=== PATIENT | female | born 1970 | race Caucasian/White ===

== ENCOUNTER 2023-07-16 09:44 | Outpatient (CLI) | payer BC | END 2023-07-16 09:45 | disposition home or self-care (01) | LOC: CSHMAMMO 09:44 | PROVIDERS: ATTEND Family Medicine | DX: Z13.820 Encounter for screening for osteoporosis (principal); S72.491E Other fracture of lower end of right femur, subsequent encounter for open fracture type I or II with routine healing; M81.0 Age-related osteoporosis without current pathological fracture; M85.852 Other specified disorders of bone density and structure, left thigh | CPT/HCPCS: 77080 ==

== ENCOUNTER 2024-11-30 10:35 | Outpatient (CLI) | payer BC ==
[~2024-11-30 10:35] MED LIST: Iopamidol 370 76% 100 ML VIAL ONE
== END 2024-11-30 10:36 | disposition home or self-care (01) ==
LOC: CSHCT 10:35
PROVIDERS: ATTEND Family Medicine
DX: R06.02 Shortness of breath (principal)
CPT/HCPCS: 71275